=== PATIENT | female | born 1940 | race Caucasian/White ===

== ENCOUNTER 2021-03-15 19:16 | Emergency (ER) | payer MEDICARE, OTHER ==
[~2021-03-15] VITALS: Ht 165.1 cm; Wt 49.4 kg
[2021-03-15] MEDS ORDERED: BASAGLAR K100 UNIT/6 SC (19:27)
[2021-03-15] MEDS ORDERED: INSULIN LI100 UNIT/6 SC (19:28)
[2021-03-15 20:49] LABS: Source, Urine Clean Catch
[2021-03-15 20:53] LABS: BASOPHILS ABSOLUTE AUTO 0.06 K/mm3 (0.00-0.23); BASOPHILS PERCENT AUTO 1 % (0-2); EOSINOPHILS ABSOLUTE AUTO 0.14 K/mm3 (0.00-0.68); EOSINOPHILS PERCENT AUTO 3 % (0-6); Hematocrit 39.3 % (33.0-51.0); Hemoglobin 13.1 g/dL (11.5-16.0); IMMATURE GRAN ABSOLUTE AUTO 0.01 K/mm3 (0.00-0.10); IMMATURE GRAN PERCENT AUTO 0 % (0-1); LYMPHOCYTES ABSOLUTE AUTO 1.35 K/mm3 (0.84-5.20); LYMPHOCYTES PERCENT AUTO 26 % (21-46); MONOCYTES ABSOLUTE AUTO 0.34 K/mm3 (0.16-1.47); MONOCYTES PERCENT AUTO 7 % (4-13); Mean Corpuscular HGB 30.5 pg (26.0-34.0); Mean Corpuscular HGB Conc 33.3 g/dL (31.5-36.5); Mean Corpuscular Volume 92 fL (80-100); NEUTROPHILS ABSOLUTE AUTO 3.33 K/mm3 (1.96-9.15); NEUTROPHILS PERCENT AUTO 64 % (41-73); Platelet Count 188 K/mm3 (150-400); RDW Coefficient Variation 12.4 % (11.7-14.2); RDW Standard Deviation 41.5 fL (35.1-46.3); Red Blood Cell Count 4.29 M/mm3 (3.80-5.20); White Blood Cell Count 5.23 K/mm3 (4.00-11.30)
[2021-03-15 20:53] LABS: Appearance, Urine Clear (Clear); Bilirubin, Urine Neg (Neg); Blood, Urine 1+ (Neg); Color, Urine Yellow (P-Yellow); Glucose Qualitative, Urine 4+ (Neg); Ketones, Urine Neg (Neg); Leukocyte Esterase, Urine Neg (Neg); Nitrite, Urine Neg (Neg); Protein, Urine 2+ (Neg); Urobilinogen, Urine NORM (Normal); pH, Urine 6.5 (5.0-8.0)
[2021-03-15 21:13] LABS: Bacteria Rare /hpf; Red Blood Cells, Urine 0-2 /hpf (0-2); Squamous Epithelial Cells Few /hpf (Few); White Blood Cells, Urine Not Seen /hpf (0-5)
[2021-03-15 21:33] LABS: Alanine Aminotransfer (ALT/SGP 28 U/L (12-78); Albumin/Globulin Ratio 0.7 (0.8-1.8); Alk Phos 154 U/L (50-136); Anion Gap 5 mmol/L (6-16); Aspartate Aminotrans (AST/SGOT 18 U/L (12-37); Bilirubin, Total 0.4 mg/dL (0.1-1.0); Blood Urea Nitrogen 20 mg/dL (8-24); CO2, Blood 30 mmol/L (21-32); Calcium, Blood 9.2 mg/dL (8.5-10.1); Chloride, Blood 99 mmol/L (98-108); Creatinine, Blood 0.53 mg/dL (0.40-1.00); Globulin, Blood 4.1 g/dL (2.2-4.0); Glomerular Filtration Rate >60 (60-); Glucose, Blood 435 mg/dL (70-99); Magnesium, Blood 2.3 mg/dL (1.6-2.4); Sodium, Blood 134 mmol/L (136-145); Total Protein, Blood 7.1 g/dL (6.4-8.2); Troponin I <0.015 ng/mL (0.000-0.040)
== END 2021-03-16 01:28 | disposition home or self-care (01) ==
LOC: ER 19:16
PROVIDERS: Physician Assistant
DX: E11.65 Type 2 diabetes mellitus with hyperglycemia (principal); E86.0 Dehydration; Z88.0 Allergy status to penicillin; Z91.012 Allergy to eggs; Z79.4 Long term (current) use of insulin
CPT/HCPCS: 36415; 80053; 81001; 82947; 83735; 84484; 85025; 93005; 93010; 99285-25; J1815; J7030

== ENCOUNTER → 2021-03-22 | Outpatient (CLI) | payer MEDICARE, OTHER ==
[~2021-03-22] MED LIST: BASAGLAR K100 UNIT/6 SC; INSULIN LI100 UNIT/6 SC
== END ==
LOC: LAB SHORT 14:25 → LAB 14:25
DX: R42 Dizziness and giddiness (principal); R81 Glycosuria
CPT/HCPCS: 87086

== ENCOUNTER 2021-05-11 14:58 | Inpatient (IN) | payer MEDICARE, OTHER ==
[~2021-05-11] VITALS: Ht 162.6 cm; Wt 55.3 kg
[2021-05-11 16:43] LABS: BASOPHILS ABSOLUTE AUTO 0.06 K/mm3 (0.00-0.23); BASOPHILS PERCENT AUTO 1 % (0-2); EOSINOPHILS ABSOLUTE AUTO 0.14 K/mm3 (0.00-0.68); EOSINOPHILS PERCENT AUTO 2 % (0-6); Hematocrit 35.1 % (33.0-51.0); Hemoglobin 11.8 g/dL (11.5-16.0); IMMATURE GRAN ABSOLUTE AUTO 0.01 K/mm3 (0.00-0.10); IMMATURE GRAN PERCENT AUTO 0 % (0-1); LYMPHOCYTES ABSOLUTE AUTO 1.21 K/mm3 (0.84-5.20); LYMPHOCYTES PERCENT AUTO 18 % (21-46); MONOCYTES ABSOLUTE AUTO 0.39 K/mm3 (0.16-1.47); MONOCYTES PERCENT AUTO 6 % (4-13); Mean Corpuscular HGB Conc 33.6 g/dL (31.5-36.5); Mean Corpuscular Volume 92 fL (80-100); Mean Platelet Volume 9.4 fL (9.1-12.4); NEUTROPHILS ABSOLUTE AUTO 4.76 K/mm3 (1.96-9.15); NEUTROPHILS PERCENT AUTO 73 % (41-73); Platelet Count 174 K/mm3 (150-400); RDW Standard Deviation 41.3 fL (35.1-46.3); Red Blood Cell Count 3.81 M/mm3 (3.80-5.20); White Blood Cell Count 6.57 K/mm3 (4.00-11.30)
[2021-05-11 16:52] LABS: International Normalized Ratio 1.01; Prothrombin Time Results 10.6 Sec (9.7-11.5)
[2021-05-11 16:56] LABS: Alanine Aminotransfer (ALT/SGP 24 U/L (12-78); Albumin, Blood 3.1 g/dL (3.4-5.0); Albumin/Globulin Ratio 0.9 (0.8-1.8); Alk Phos 123 U/L (50-136); Anion Gap 4 mmol/L (6-16); Aspartate Aminotrans (AST/SGOT 19 U/L (12-37); Bilirubin, Total 0.3 mg/dL (0.1-1.0); Blood Urea Nitrogen 15 mg/dL (8-24); Bun/Creatinine Ratio 31.2 (12.0-20.0); CO2, Blood 27 mmol/L (21-32); Calcium, Blood 8.4 mg/dL (8.5-10.1); Chloride, Blood 102 mmol/L (98-108); Creatinine, Blood 0.48 mg/dL (0.40-1.00); Globulin, Blood 3.4 g/dL (2.2-4.0); Glomerular Filtration Rate >60 (60-); Glucose, Blood 168 mg/dL (70-99); Sodium, Blood 133 mmol/L (136-145); Total Protein, Blood 6.5 g/dL (6.4-8.2)
[2021-05-11 17:58] LABS: Influenza A, PCR NEGATIVE (NEGATIVE); Influenza B, PCR NEGATIVE (NEGATIVE); Resp Syncytial Virus, PCR NEGATIVE (NEGATIVE); SARS-Cov-2 (COVID-19) PCR, MMC NEGATIVE (NEGATIVE)
[2021-05-12 05:19] LABS: International Normalized Ratio 1.02; Prothrombin Time Results 10.7 Sec (9.7-11.5)
[2021-05-12 05:23] LABS: BASOPHILS ABSOLUTE AUTO 0.03 K/mm3 (0.00-0.23); BASOPHILS PERCENT AUTO 0 % (0-2); EOSINOPHILS ABSOLUTE AUTO 0.01 K/mm3 (0.00-0.68); EOSINOPHILS PERCENT AUTO 0 % (0-6); Hematocrit 31.6 % (33.0-51.0); Hemoglobin 10.8 g/dL (11.5-16.0); IMMATURE GRAN ABSOLUTE AUTO 0.02 K/mm3 (0.00-0.10); IMMATURE GRAN PERCENT AUTO 0 % (0-1); LYMPHOCYTES ABSOLUTE AUTO 0.95 K/mm3 (0.84-5.20); LYMPHOCYTES PERCENT AUTO 14 % (21-46); MONOCYTES ABSOLUTE AUTO 0.63 K/mm3 (0.16-1.47); MONOCYTES PERCENT AUTO 9 % (4-13); Mean Corpuscular HGB 31.2 pg (26.0-34.0); Mean Corpuscular HGB Conc 34.2 g/dL (31.5-36.5); Mean Corpuscular Volume 91 fL (80-100); Mean Platelet Volume 10.3 fL (9.1-12.4); NEUTROPHILS ABSOLUTE AUTO 5.41 K/mm3 (1.96-9.15); NEUTROPHILS PERCENT AUTO 77 % (41-73); Platelet Count 150 K/mm3 (150-400); RDW Coefficient Variation 12.1 % (11.7-14.2); RDW Standard Deviation 40.5 fL (35.1-46.3); Red Blood Cell Count 3.46 M/mm3 (3.80-5.20); White Blood Cell Count 7.05 K/mm3 (4.00-11.30)
[2021-05-12 05:44] LABS: Anion Gap 9 mmol/L (6-16); Blood Urea Nitrogen 22 mg/dL (8-24); Bun/Creatinine Ratio 34.9 (12.0-20.0); CO2, Blood 24 mmol/L (21-32); Calcium, Blood 8.1 mg/dL (8.5-10.1); Chloride, Blood 97 mmol/L (98-108); Creatinine, Blood 0.63 mg/dL (0.40-1.00); Glomerular Filtration Rate >60 (60-); Glucose, Blood 334 mg/dL (70-99); Potassium, Blood 4.1 mmol/L (3.5-5.5); Sodium, Blood 130 mmol/L (136-145)
--- NOTE | 2021-05-12 06:20 | NUR ---
ALERT AND ORIENTED X'S 4. MEDICATED WITH VICODIN AND FENTANYL DUE TO RIGHT HIP PAIN, REPOSITIONED FOR COMFORT, EFFECTIVE RELIEF. 0600 BS 325, RECEIVED 4 UNITS PER SLIDING SCALE. RESTING PEACEFULLY AT THIS TIME. PUREWICK CATHETER IN PLACE, WORKING EFFECTIVELY. SAFETY MAINTAINED, CALL PAREDES IN REACH.
--- NOTE | 2021-05-12 06:29 | NUR ---
NPO AFTER MIDNIGHT.
--- NOTE | 2021-05-12 12:41 | NUR ---
05/12/21 1241 Mell Mcmullen PATIENT ARRIVED TO OR WITH WICK CATHETER IN PLACE.
--- NOTE | 2021-05-12 14:31 | NUR ---
PT RETURNED FROM O.R., A&OX4, VSS, REP MINIMAL PAIN, SITTING UP AND DRINKING WATER.
--- NOTE | 2021-05-12 15:44 | NUR ---
TELEPHONE CALL WITH HOSPITALIST, RECEIVED NEW ORDERS: TORADOL 15 MG Q6H PRN, KEEP PT ON HOSPITAL LOW SLIDING SCALE (PT WAS REQUESTING TO USE THE SCALE SHE USES AT HOME), AND DC TELE.
--- NOTE | 2021-05-12 18:09 | NUR ---
SHIFT SUMMARY POD0 FOR R HIP NAILING. 2 AQUACELS CDI, PT A/0 X4. VSS ON ROOM AIR. CBG'S AC/HS COVERED PER EMAR. TOUCHDOWN WEIGHT BEARING, PT STOOD AND PIVOTED WITH FWW/GB/SBA TO BSC. PAIN CONTROLED WITH TYLENOL AND TORADOL. TOLORATING PO. VOIDED 100ML
--- NOTE | 2021-05-12 18:59 | NUR ---
SHIFT SUMMARY PT A&OX4, VSS/RA, CBGS COV PER EMAR. VOIDING. HOLLIE PO. PAIN MANAGED WITH TYLENOL AND TORADOL. S/P R HIP NAILING, 2 AQUACELS CDI. AMB W/FWW/GB/SBA TO BSC/BED. REPORT PROVIDED TO MEGAN SORIANO.
--- NOTE | 2021-05-12 21:27 | NUR ---
BS 354, NOTIFIED MD, RECEIVED ORDER FOR ADDITIONAL 5 UNITS OF REGULAR INSULIN.
[2021-05-13 04:14] LABS: Hemoglobin 9.1 g/dL (11.5-16.0); Mean Corpuscular HGB 31.4 pg (26.0-34.0); Mean Corpuscular Volume 90 fL (80-100); Mean Platelet Volume 9.7 fL (9.1-12.4); Platelet Count 153 K/mm3 (150-400); RDW Standard Deviation 39.3 fL (35.1-46.3); White Blood Cell Count 7.98 K/mm3 (4.00-11.30)
[2021-05-13 04:44] LABS: Alanine Aminotransfer (ALT/SGP 20 U/L (12-78); Albumin, Blood 2.6 g/dL (3.4-5.0); Albumin/Globulin Ratio 0.9 (0.8-1.8); Alk Phos 78 U/L (50-136); Anion Gap 7 mmol/L (6-16); Aspartate Aminotrans (AST/SGOT 14 U/L (12-37); Bilirubin, Total 0.5 mg/dL (0.1-1.0); Blood Urea Nitrogen 35 mg/dL (8-24); Bun/Creatinine Ratio 41.7 (12.0-20.0); CO2, Blood 25 mmol/L (21-32); Calcium, Blood 7.8 mg/dL (8.5-10.1); Chloride, Blood 93 mmol/L (98-108); Creatinine, Blood 0.84 mg/dL (0.40-1.00); Ferritin, Serum 74 ng/mL (8-252); Glomerular Filtration Rate >60 (60-); Glucose, Blood 303 mg/dL (70-99); Iron Serum 44 ug/dL (50-170); Percent Saturation 18.5 % (15.0-50.0); Potassium, Blood 4.6 mmol/L (3.5-5.5); Sodium, Blood 125 mmol/L (136-145); Total Iron Binding Capacity 238 ug/dL (250-450); Total Protein, Blood 5.6 g/dL (6.4-8.2)
--- NOTE | 2021-05-13 05:21 | NUR ---
SLEPT WELL THROUGH NIGHT. FLUIDS ENCOURAGED AT BEDSIDE, TOLERATING WELL. DENIES PAIN OR DISCOMFORT. 2 ASSIST TO BSC, PATIENT ABLE TO STAND AND PIVOT WITH WALKER, VOIDING WITHOUT DIFFICULTIES. SAFETY MAINTAINED, CALL PAREDES IN REACH.
--- NOTE | 2021-05-13 15:34 | NUR ---
SHIFT SUMMARY: POD 1 RIGHT HIP REPAIR PATIENT IS ALERT AND ORIENTED X4. VS ARE WNL AND IS ON RA. PAIN IS MANAGED WITH TORADOL AND 1 NORCO. RIGHT HIP HAS 2 AQUACEL THAT ARE C/D/I. SHE IS ABLE TO MOVE FINGERS AND TOES. PATIENT NEEDS A LOT OF ENCOURAGEMENT WITH MOVING. SHE ALSO NEEDS TO BE REMINDED ON THE HIP PRECAUTIONS EVERY TIME SHE NEEDS TO USE THE BSC. SHE TOLERATES PO INTAKE AND IS VOIDING. PATIENT IS VERY ANXIOUS WITH MOVEMENT/INSTRUCTIONS. SHE IS A SBA WITH FWW AND GAIT BELT. CALL LIGHT WITHIN REACH. THE PLAN IS TO EITHER GO TO SNF OR HOME WITH HOME HEALTH DEPENDING ON PROGRESS.
--- NOTE | 2021-05-13 16:39 | NUR ---
CALLED DR. TORRES ABOUT PATIENT REFUSING HER INSULIN WITH HER BLOOD SUGAR BEING 322. PATIENT REPORTS "ITS GOING DOWN TOO FAST" IS WHY SHE DOESN'T WANT THE INSULIN. SHE KEEPS REPEATING "WITH DR. FERREIRA HE DOES MY INSULIN DIFFERENT AND ITS MORE MANAGED" AND "I HAD DKA BEFORE AND CAN'T HAVE MY INSULIN GO DOWN TOO FAST". CALLED DR. FERREIRA AND ASKED IF HE COULD COME IN AND TALK WITH THE PATIENT BUT HE WAS ALREAD OUT OF THE HOSPITAL. THOUGH DR. FERREIRA STATED HE WOULD REVIEW THE PATIENTS CHART.
--- NOTE | 2021-05-13 17:52 | NUR ---
PATIENT IS REFUSING PO METFORMIN AND GLIPIZIDE. PATIENT REPORTS "I WANT TO HAVE MY FAST ACTING INSULIN AND HAVE MY LANTUS AT 2100 TWICE A DAY" AND ALSO STATES "THIS IS TOO EARLY TO TAKE MY LANTUS". PATIENT WILL BE BLOOD GLUCOSE TESTED AGAIN AT 2100 AND THEN WILL POSSIBLY HAVE HER LANTUS AT THAT TIME IF APPROPRIATE. CALL LIGHT WITHIN REACH. PATIENT IS EATING HER DINNER UP IN THE CHAIR.
--- NOTE | 2021-05-13 21:30 | NUR ---
PATIENTS GLUCOSE 357, REFUSING SLIDING SCALE COVERAGE, SHE STATED SHE WILL ONLY TAKE 2 UNITS OF REGULAR INSULIN AND HER 9 UNITS OF GLARGINE. PATIENT REQUESTING TO HAVE HER SLIDING UPDATED TO HER SLIDING SCALE AT HOME. NOTIFIED DR. LU, OK TO GIVE 2 UNITS REGULAR AND 9 UNITS OF GLARGINE AND DO NOT CHANGE CURRENT SLIDING SCALE.
--- NOTE | 2021-05-14 05:27 | NUR ---
ALERT X'S 4. MEDICATED FOR RIGHT HIP PAIN, EFFECTIVE RELIEF. S;AEPT WELL THROUGH NIGHT. 1 ASSIST TO BSC. AUQUACEL DRESSING CLEAN DRY AND INTACT TO RIGHT HIP, SAFETY MAINTAINED, CALL PAREDES IN REACH.
--- NOTE | 2021-05-14 09:42 | NUR ---
PATIENT DECLINING METFORMIN AND GLIPIZIDE THIS A.M. STATES "IM CLAMMY AND MY BLOOD SUGAR IS LOW", EXPLAINED TO PT. THAT BLOOD SUGAR IS 285MG/DL AND NOTED THAT PT. DID NOT FEEL CLAMMY. PRIOR TO SLIDING SCALE INSULIN PATIENT INSISTED THAT BLOOD SUGAR BE TAKEN AGAIN, RESULT 328MG/DL. EXPLAINED THE PATHOPHYS OF DIABETES AND BLOOD SUGAR, STATES "WELL IM DIFFERENT AND I DROP FAST". STATES SHE IS FRUSTRATED WITH ALWAYS GETTING NEW ORDERS AND "METFORMIN MAKES ME VERY ILL". SHE DID TAKE HER SSI OF 4U AND ATE HER BREAKFAST. GLARGINE 9 UNITS GIVEN AFTER BREAKFAST. STATES SHE WANTS TO DISCUSS HER USUAL MEDICATION REGIME WITH THE DOCTOR.
[2021-05-14 12:13] LABS: Hematocrit 28.4 % (33.0-51.0); Hemoglobin 9.9 g/dL (11.5-16.0); Mean Corpuscular HGB 31.2 pg (26.0-34.0); Mean Corpuscular HGB Conc 34.9 g/dL (31.5-36.5); Mean Corpuscular Volume 90 fL (80-100); Mean Platelet Volume 9.7 fL (9.1-12.4); Platelet Count 169 K/mm3 (150-400); RDW Coefficient Variation 11.6 % (11.7-14.2); RDW Standard Deviation 37.5 fL (35.1-46.3); Red Blood Cell Count 3.17 M/mm3 (3.80-5.20); White Blood Cell Count 7.12 K/mm3 (4.00-11.30)
[2021-05-14 13:09] LABS: Anion Gap 10 mmol/L (6-16); Blood Urea Nitrogen 26 mg/dL (8-24); Bun/Creatinine Ratio 37.8 (12.0-20.0); CO2, Blood 23 mmol/L (21-32); Calcium, Blood 8.2 mg/dL (8.5-10.1); Chloride, Blood 85 mmol/L (98-108); Creatinine, Blood 0.69 mg/dL (0.40-1.00); Glomerular Filtration Rate >60 (60-); Glucose, Blood 308 mg/dL (70-99); Potassium, Blood 4.6 mmol/L (3.5-5.5); Sodium, Blood 118 mmol/L (136-145)
--- NOTE | 2021-05-14 13:11 | NUR ---
CRITICAL VALUE CALLED TO DR. TORRES, MESSAGE LEFT: SODIUM LEVEL 118.
--- NOTE | 2021-05-14 15:40 | NUR ---
NEW ORDERS RECIEVED EARLIER FOR NORMAL SALINE IV PER DR. TORRES. ZOFRAN GIVEN EARLIER AND PT. VERBALIZE RELIEF OF NAUSEA AT THIS TIME. IVF INFUSING.
--- NOTE | 2021-05-14 17:01 | NUR ---
NANCY KEITHG. CHANGE TO R HIP PER DR. FORD INSTRUCTION. TINO INTACT, INCISIONS WELL APPROXIMATED, SMALL AMOUNT OLD DRAINAGE.
[2021-05-14 20:21] LABS: Anion Gap 9 mmol/L (6-16); Blood Urea Nitrogen 20 mg/dL (8-24); Bun/Creatinine Ratio 33.6 (12.0-20.0); CO2, Blood 26 mmol/L (21-32); Calcium, Blood 7.8 mg/dL (8.5-10.1); Chloride, Blood 87 mmol/L (98-108); Glomerular Filtration Rate >60 (60-); Glucose, Blood 225 mg/dL (70-99); Potassium, Blood 4.1 mmol/L (3.5-5.5); Sodium, Blood 122 mmol/L (136-145)
--- NOTE | 2021-05-15 03:45 | NUR ---
COMPLAINING OF ABDOMINAL PAIN, BLADDER SCANNED, RECEIVED GREATER THAN 900ML. STRAIGHT CATHED RECEIVED 1610MLS. RECEIVED ORDER TO INSERT LEW CATHETER, TOLERATED WELL.
[2021-05-15 04:03] LABS: Source, Urine Straight Cath
[2021-05-15 04:09] LABS: Bilirubin, Urine Neg (Neg); Blood, Urine 1+ (Neg); Glucose Qualitative, Urine 4+ (Neg); Ketones, Urine 1+ (Neg); Leukocyte Esterase, Urine Neg (Neg); Nitrite, Urine Neg (Neg); Protein, Urine Neg (Neg); Urobilinogen, Urine NORM (Normal); pH, Urine 6.5 (5.0-8.0)
[2021-05-15 04:13] LABS: Appearance, Urine Clear (Clear); Color, Urine Yellow (P-Yellow)
[2021-05-15 04:31] LABS: Hematocrit 24.3 % (33.0-51.0); Hemoglobin 8.7 g/dL (11.5-16.0); Mean Corpuscular HGB 31.3 pg (26.0-34.0); Mean Corpuscular HGB Conc 35.8 g/dL (31.5-36.5); Mean Corpuscular Volume 87 fL (80-100); Mean Platelet Volume 9.9 fL (9.1-12.4); Platelet Count 144 K/mm3 (150-400); RDW Coefficient Variation 11.5 % (11.7-14.2); RDW Standard Deviation 37.2 fL (35.1-46.3); Red Blood Cell Count 2.78 M/mm3 (3.80-5.20); White Blood Cell Count 5.46 K/mm3 (4.00-11.30)
[2021-05-15 04:42] LABS: Bacteria Rare /hpf; Red Blood Cells, Urine 0-2 /hpf (0-2); Squamous Epithelial Cells Rare /hpf (Few); White Blood Cells, Urine Not Seen /hpf (0-5)
[2021-05-15 05:11] LABS: Alanine Aminotransfer (ALT/SGP 20 U/L (12-78); Albumin, Blood 2.6 g/dL (3.4-5.0); Albumin/Globulin Ratio 0.8 (0.8-1.8); Alk Phos 89 U/L (50-136); Anion Gap 8 mmol/L (6-16); Aspartate Aminotrans (AST/SGOT 19 U/L (12-37); Bilirubin, Total 0.7 mg/dL (0.1-1.0); Blood Urea Nitrogen 16 mg/dL (8-24); Bun/Creatinine Ratio 29.6 (12.0-20.0); CO2, Blood 22 mmol/L (21-32); Calcium, Blood 7.8 mg/dL (8.5-10.1); Chloride, Blood 89 mmol/L (98-108); Creatinine, Blood 0.54 mg/dL (0.40-1.00); Globulin, Blood 3.3 g/dL (2.2-4.0); Glomerular Filtration Rate >60 (60-); Glucose, Blood 287 mg/dL (70-99); Sodium, Blood 119 mmol/L (136-145); Total Protein, Blood 5.9 g/dL (6.4-8.2)
--- NOTE | 2021-05-15 10:56 | NUR ---
LEW EMPTIED PRIOR TO LASIX. AFTER LASIX PT. DIURESED AND HAD 700CC LIGHT PALE YELLOW URINE, EMPTIED LEW AGAIN. TOTAL 1500ML OUT SO FAR THIS SHIFT.
[2021-05-15 11:28] LABS: Anion Gap 9 mmol/L (6-16); Blood Urea Nitrogen 14 mg/dL (8-24); Bun/Creatinine Ratio 27.3 (12.0-20.0); CO2, Blood 24 mmol/L (21-32); Calcium, Blood 7.5 mg/dL (8.5-10.1); Chloride, Blood 89 mmol/L (98-108); Creatinine, Blood 0.51 mg/dL (0.40-1.00); Glomerular Filtration Rate >60 (60-); Glucose, Blood 275 mg/dL (70-99); Potassium, Blood 3.8 mmol/L (3.5-5.5); Sodium, Blood 122 mmol/L (136-145)
[2021-05-16 04:56] LABS: Hematocrit 24.3 % (33.0-51.0); Hemoglobin 8.4 g/dL (11.5-16.0); Mean Corpuscular HGB 30.8 pg (26.0-34.0); Mean Corpuscular HGB Conc 34.6 g/dL (31.5-36.5); Mean Corpuscular Volume 89 fL (80-100); Mean Platelet Volume 9.5 fL (9.1-12.4); Platelet Count 169 K/mm3 (150-400); RDW Coefficient Variation 11.8 % (11.7-14.2); RDW Standard Deviation 37.9 fL (35.1-46.3); Red Blood Cell Count 2.73 M/mm3 (3.80-5.20); White Blood Cell Count 5.89 K/mm3 (4.00-11.30)
[2021-05-16 05:22] LABS: Alanine Aminotransfer (ALT/SGP 19 U/L (12-78); Albumin, Blood 2.4 g/dL (3.4-5.0); Albumin/Globulin Ratio 0.9 (0.8-1.8); Alk Phos 76 U/L (50-136); Anion Gap 8 mmol/L (6-16); Aspartate Aminotrans (AST/SGOT 15 U/L (12-37); Bilirubin, Total 0.9 mg/dL (0.1-1.0); Blood Urea Nitrogen 11 mg/dL (8-24); Bun/Creatinine Ratio 18.6 (12.0-20.0); CO2, Blood 26 mmol/L (21-32); Chloride, Blood 96 mmol/L (98-108); Creatinine, Blood 0.59 mg/dL (0.40-1.00); Globulin, Blood 2.8 g/dL (2.2-4.0); Glomerular Filtration Rate >60 (60-); Glucose, Blood 153 mg/dL (70-99); Potassium, Blood 3.6 mmol/L (3.5-5.5); Sodium, Blood 130 mmol/L (136-145); Total Protein, Blood 5.2 g/dL (6.4-8.2)
--- NOTE | 2021-05-16 06:41 | NUR ---
POD 4 S/P R HIP REP. PT VSS T/O NIGHT. PAIN MGD W/TORADOL W/REP RELIEF. PT DENIED N/V. EH ALVAREZ PALE YELLOW URINE. PT REPOSITIONING SELF W/MIN ASSIST IN BED. PLAN TO MOBILIZE W/PT AND AWAIT DC PLANNING
--- NOTE | 2021-05-16 18:00 | NUR ---
PATIENT CURRENTLY SITTING UP IN BED WITH NO SIGNS OR SYMPTOMS ACUTE DISTRESS NOTED. CALL LIGHT AND WATER IN EASY REACH. ABLE TO MAKE NEEDS AND WANTS KNOWN. MEDICATED FOR PAIN PER ORDERS. PATIENT WORKED WITH THERAPY TODAY. TOLERATED WELL. LEW CATH REMAINS, BLADDER TRAINING STARTED. SIDNEY BONILLA.
--- NOTE | 2021-05-16 21:24 | NUR ---
BLOOD SUGAR: PT RELUCTANT TO TAKE 6 6 UNITS ORDERED BY HIGH SS COVERAGE. ORDER STATES TO GIVE 6 UNITS AND CALL MD. PT STATES SHE IS UNWILLING TO TAKE ADDITIONAL UNITS IF MD ORDERES IT FOR ELEVATED CBG. STATES SHE WILL ONLY TAKE THE SCHEDULED 6 UNITS AND WILL AWAIT AM RECHECK.
[2021-05-17 04:04] LABS: Hematocrit 23.5 % (33.0-51.0); Hemoglobin 8.1 g/dL (11.5-16.0); Mean Corpuscular HGB 31.2 pg (26.0-34.0); Mean Corpuscular HGB Conc 34.5 g/dL (31.5-36.5); Mean Corpuscular Volume 90 fL (80-100); Mean Platelet Volume 9.1 fL (9.1-12.4); Platelet Count 168 K/mm3 (150-400); RDW Coefficient Variation 12.1 % (11.7-14.2); RDW Standard Deviation 39.5 fL (35.1-46.3); White Blood Cell Count 5.37 K/mm3 (4.00-11.30)
[2021-05-17 04:22] LABS: Anion Gap 3 mmol/L (6-16); Blood Urea Nitrogen 18 mg/dL (8-24); Bun/Creatinine Ratio 26.4 (12.0-20.0); CO2, Blood 29 mmol/L (21-32); Chloride, Blood 98 mmol/L (98-108); Creatinine, Blood 0.68 mg/dL (0.40-1.00); Glomerular Filtration Rate >60 (60-); Glucose, Blood 216 mg/dL (70-99); Potassium, Blood 4.7 mmol/L (3.5-5.5); Sodium, Blood 130 mmol/L (136-145)
--- NOTE | 2021-05-17 07:17 | NUR ---
POD 5 S/P R HIP REP. PT VSS T/O NIGHT. DRESSING CDI, SMALL BRUISE NOTED ON HIP. PAIN MGD W/TORADOL AND REPOSITIONING PER PT REQ. PT WANTING TO LIMIT NARCOTIC MEDS. BLADDER TRAINING CONT T/O NIGHT. PT REP ONLY FELT SMALL URGE TO VOID, BLADDER DRAINED 800 ML WHEN UNCLAMPED ATER 4HRS. 300 ML DRAINED AFTER SECOND TIME LEW UNCLAMPED. PT HAD 2 SMALL BM'S THIS SHIFT. NO C/O N/V.
--- NOTE | 2021-05-17 18:16 | NUR ---
PATIENT CURRENTLY SITTING UP IN BED EATING HER MEAL. NO SIGNS OR SYMPTOMS ACUTE DISTRESS NOTED. CALL LIGHT AND WATER IN EASY REACH. ABLE TO MAKE NEEDS AND WANTS KNOWN. UP TO CHAIR TODAY. PATIENT REFUSES TO FOLLOW DIRECTIONS FOR HER SLIDING SCALE INSULIN. MEDICATED FOR PAIN PER ORDERS. BLADDER TRAINING CONTINUES. DRESSING TO RIGHT HIP CDI. WILL MONITOR.
--- NOTE | 2021-05-18 05:07 | NUR ---
MEDICATED WITH NORCO X'S 1 FOR PAIN MANAGEMENT, EFFECTIVE RELIEF. SLEPT WELL THROUGH NIGHT. LEW CATHETER IN PLACE, CONTINUING TO BLADDER TRAIN. CURRENTLY RESTING PEACEFULLY IN BED. SAFETY MAINTAINED, CALL PAREDES IN REACH
[2021-05-18 11:48] LABS: Influenza A, PCR NEGATIVE (NEGATIVE); Influenza B, PCR NEGATIVE (NEGATIVE); Resp Syncytial Virus, PCR NEGATIVE (NEGATIVE); SARS-Cov-2 (COVID-19) PCR, MMC NEGATIVE (NEGATIVE)
--- NOTE | 2021-05-18 15:45 | NUR ---
DISCHARGE: CALLED REPORT TO BRAXTON BOUCHER AT [facility] AT THIS TIME. PATIENT IS AWARE OF HER DISCHARGE TO [facility]. PATIENT LEW WAS REMOVED TODAY AFTER DOING TWO DAYS OF BLADDER TRAINING. SHE HAS VOIDED TWICE SINCE LEW DC. NO SIGNS OR SYMPTOMS ACUTE DISTRESS NOTED AT THIS TIME. AWAITING TRANSPORT TO PICK PATIENT UP FOR DC.
== END 2021-05-18 16:30 | DRG 481 ==
LOC: ER 14:58 → SURS 18:15
PROVIDERS: Emergency Medicine; Internal Medicine; Orthopaedic Surgery; ADMIT Family Medicine
PROC: 0QS636Z Reposition Right Upper Femur with Intramedullary Internal Fixation Device, Percutaneous Approach (ICD-10-PCS; principal; 2021-05-12 12:00)
DX: S72.141A Displaced intertrochanteric fracture of right femur, initial encounter for closed fracture (principal); E87.1 Hypo-osmolality and hyponatremia; E11.9 Type 2 diabetes mellitus without complications; I10 Essential (primary) hypertension; F03.90 Unspecified dementia, unspecified severity, without behavioral disturbance, psychotic disturbance, mood disturbance, and anxiety; R33.9 Retention of urine, unspecified; D63.8 Anemia in other chronic diseases classified elsewhere; M81.0 Age-related osteoporosis without current pathological fracture; Z90.710 Acquired absence of both cervix and uterus; Z98.890 Other specified postprocedural states; Z88.0 Allergy status to penicillin; Z91.012 Allergy to eggs; Z79.4 Long term (current) use of insulin; W01.0XXA Fall on same level from slipping, tripping and stumbling without subsequent striking against object, initial encounter; Y93.01 Activity, walking, marching and hiking
CPT/HCPCS: 0241U; 36415; 36416; 72170; 73552; 80048; 80053; 81001; 82728; 82947; 83540; 83550; 83735; 84443; 85025; 85027; 85610; 85730; 97110; 97116; 97162; 97166; 97530; 97530-CQ; 97535; 99285-25; A9270; C1713; C1769; J0360; J1100; J1815; J1885; J1940; J2250; J2370; J2405; J2704; J3010; J7030

== ENCOUNTER 2021-05-27 09:54 | Emergency (ER) | payer MEDICARE, OTHER ==
[~2021-05-27] VITALS: Ht 162.6 cm; Wt 57.6 kg
[2021-05-27 10:14] LABS: BASOPHILS ABSOLUTE AUTO 0.06 K/mm3 (0.00-0.23); BASOPHILS PERCENT AUTO 1 % (0-2); EOSINOPHILS PERCENT AUTO 3 % (0-6); Hematocrit 29.6 % (33.0-51.0); Hemoglobin 9.9 g/dL (11.5-16.0); IMMATURE GRAN ABSOLUTE AUTO 0.04 K/mm3 (0.00-0.10); IMMATURE GRAN PERCENT AUTO 1 % (0-1); LYMPHOCYTES ABSOLUTE AUTO 1.49 K/mm3 (0.84-5.20); LYMPHOCYTES PERCENT AUTO 24 % (21-46); MONOCYTES ABSOLUTE AUTO 0.55 K/mm3 (0.16-1.47); MONOCYTES PERCENT AUTO 9 % (4-13); Mean Corpuscular HGB 30.9 pg (26.0-34.0); Mean Corpuscular HGB Conc 33.4 g/dL (31.5-36.5); Mean Corpuscular Volume 93 fL (80-100); Mean Platelet Volume 8.7 fL (9.1-12.4); NEUTROPHILS ABSOLUTE AUTO 3.84 K/mm3 (1.96-9.15); NEUTROPHILS PERCENT AUTO 62 % (41-73); Platelet Count 334 K/mm3 (150-400); RDW Coefficient Variation 12.4 % (11.7-14.2); RDW Standard Deviation 42.3 fL (35.1-46.3); White Blood Cell Count 6.18 K/mm3 (4.00-11.30)
[2021-05-27 10:31] LABS: Alanine Aminotransfer (ALT/SGP 33 U/L (12-78); Albumin, Blood 2.5 g/dL (3.4-5.0); Albumin/Globulin Ratio 0.6 (0.8-1.8); Alk Phos 146 U/L (50-136); Anion Gap 7 mmol/L (6-16); Aspartate Aminotrans (AST/SGOT 19 U/L (12-37); Bilirubin, Total 0.4 mg/dL (0.1-1.0); Blood Urea Nitrogen 18 mg/dL (8-24); Bun/Creatinine Ratio 30.1 (12.0-20.0); CO2, Blood 26 mmol/L (21-32); Calcium, Blood 8.8 mg/dL (8.5-10.1); Chloride, Blood 99 mmol/L (98-108); Globulin, Blood 4.1 g/dL (2.2-4.0); Glomerular Filtration Rate >60 (60-); Glucose, Blood 216 mg/dL (70-99); Potassium, Blood 3.7 mmol/L (3.5-5.5); Sodium, Blood 132 mmol/L (136-145); Total Protein, Blood 6.6 g/dL (6.4-8.2)
[2021-05-27 13:00] LABS: Source, Urine Voided
[2021-05-27 13:07] LABS: Bilirubin, Urine Neg (Neg); Blood, Urine 2+ (Neg); Glucose Qualitative, Urine 3+ (Neg); Ketones, Urine Neg (Neg); Leukocyte Esterase, Urine 1+ (Neg); Nitrite, Urine Neg (Neg); Protein, Urine 1+ (Neg); Urobilinogen, Urine NORM (Normal)
[2021-05-27 13:45] LABS: Appearance, Urine Hazy (Clear); Color, Urine Pale Yellow (P-Yellow)
[2021-05-27 13:46] LABS: Squamous Epithelial Cells Rare /hpf (Few)
[2021-05-27 13:47] LABS: Bacteria Few /hpf
== END 2021-05-27 16:15 | disposition home or self-care (01) ==
LOC: ER 09:54
PROVIDERS: Emergency Medicine
DX: R55 Syncope and collapse (principal); Z88.0 Allergy status to penicillin; Z91.012 Allergy to eggs; E11.9 Type 2 diabetes mellitus without complications; Z79.4 Long term (current) use of insulin
CPT/HCPCS: 71045; 80053; 81001; 84484; 85025; 87086; 93005; 93010; 99285-25; J7030

== ENCOUNTER → 2022-05-09 | Outpatient (CLI) | payer MEDICARE, OTHER | LOC: LAB 15:12 → LAB SHORT 15:12 | DX: R09.89 Other specified symptoms and signs involving the circulatory and respiratory systems (principal) | CPT/HCPCS: 81050 ==

== ENCOUNTER 2022-08-23 13:04 | Emergency (ER) | payer OTHER, MEDICARE ==
[~2022-08-23] VITALS: Ht 162.6 cm; Wt 66.2 kg
[2022-08-23 13:14] VITALS: BP 188/92
== END 2022-08-23 16:05 | disposition home or self-care (01) ==
LOC: ER 13:04
DX: S30.0XXA Contusion of lower back and pelvis, initial encounter (principal); W01.0XXA Fall on same level from slipping, tripping and stumbling without subsequent striking against object, initial encounter; E11.9 Type 2 diabetes mellitus without complications; Z88.0 Allergy status to penicillin; Z88.8 Allergy status to other drugs, medicaments and biological substances; Z91.012 Allergy to eggs; Z79.4 Long term (current) use of insulin
CPT/HCPCS: 73502; A9270

== ENCOUNTER → 2023-03-08 | Outpatient (CLI) | payer MEDICARE, OTHER ==
[~2023-03-08] MED LIST changes: +AMLO5 PO
== END ==
LOC: LAB 15:00 → LAB SHORT 15:00
DX: L21.8 Other seborrheic dermatitis (principal)
CPT/HCPCS: 87070; 87205

== ENCOUNTER 2023-03-15 15:21 | Emergency (ER) | payer MEDICARE, OTHER ==
[~2023-03-15] VITALS: Ht 162.6 cm; Wt 63.5 kg
[~2023-03-15 15:21] MED LIST changes: -AMLO5 PO
[2023-03-15 21:20] VITALS: BP 215/102
[2023-03-15] MEDS ORDERED: AMLO5 PO (21:24)
== END 2023-03-15 21:30 | disposition home or self-care (01) ==
LOC: ER 15:21
DX: S09.90XA Unspecified injury of head, initial encounter (principal); I10 Essential (primary) hypertension; E11.9 Type 2 diabetes mellitus without complications; M81.0 Age-related osteoporosis without current pathological fracture; Z99.89 Dependence on other enabling machines and devices; Z79.4 Long term (current) use of insulin; Z79.899 Other long term (current) drug therapy; Z88.0 Allergy status to penicillin; Z88.8 Allergy status to other drugs, medicaments and biological substances; Z91.012 Allergy to eggs; W10.1XXA Fall (on)(from) sidewalk curb, initial encounter; Y93.01 Activity, walking, marching and hiking
CPT/HCPCS: 70450; 72125; 82947; 93005; 93010; 99284-25; A9270

== ENCOUNTER → 2023-03-15 | Outpatient (CLI) | payer MEDICARE, OTHER ==
[2023-03-21 07:42] LABS: VARICELLA-ZOSTER VIRUS BY PCR Not Detected; VARICELLA-ZOSTER VIRUS SOURCE SKIN
== END ==
LOC: LAB SHORT 16:25 → LAB 16:25
PROVIDERS: Dermatology Dermatopathology
DX: D48.5 Neoplasm of uncertain behavior of skin (principal); R21 Rash and other nonspecific skin eruption; L21.8 Other seborrheic dermatitis; L81.4 Other melanin hyperpigmentation; L82.1 Other seborrheic keratosis; D18.01 Hemangioma of skin and subcutaneous tissue
CPT/HCPCS: 87798

== ENCOUNTER 2024-01-13 15:44 | Inpatient (IN) | payer MEDICARE, OTHER ==
[2024-01-13] VITALS (13 sets, daily range): BP systolic 190–214; BP diastolic 78–109
[~2024-01-13] VITALS: Ht 160 cm; Wt 61.4 kg
[~2024-01-13 15:44] MED LIST changes: +AMLO5 PO
[2024-01-13] MEDS ORDERED: Nitroglycerin/D5W 250 ML IV SCH ×2 (16:25→17:50)
[2024-01-13] MEDS ORDERED: Nitroglycerin 0.4 MG SUBL SL PRN (16:25)
[2024-01-13 16:34] LABS: Albumin/Globulin Ratio 0.8 (0.8-1.8); Bilirubin, Total 0.4 mg/dL (0.1-1.0); Bun/Creatinine Ratio 36.1 (12.0-20.0); Calcium, Blood 8.8 mg/dL (8.5-10.1); Creatinine, Blood 1.55 mg/dL (0.40-1.00); Globulin, Blood 3.7 g/dL (2.2-4.0); Potassium, Blood 3.7 mmol/L (3.5-5.5); Total Protein, Blood 6.7 g/dL (6.4-8.2)
[2024-01-13 16:43] LABS: BASOPHILS ABSOLUTE AUTO 0.04 K/mm3 (0.00-0.23); BASOPHILS PERCENT AUTO 1 % (0-2); EOSINOPHILS ABSOLUTE AUTO 0.02 K/mm3 (0.00-0.68); EOSINOPHILS PERCENT AUTO 0 % (0-6); Hematocrit 26.5 % (33.0-51.0); Hemoglobin 9.1 g/dL (11.5-16.0); IMMATURE GRAN ABSOLUTE AUTO 0.03 K/mm3 (0.00-0.10); IMMATURE GRAN PERCENT AUTO 1 % (0-1); LYMPHOCYTES ABSOLUTE AUTO 1.04 K/mm3 (0.84-5.20); LYMPHOCYTES PERCENT AUTO 17 % (21-46); MONOCYTES PERCENT AUTO 5 % (4-13); Mean Corpuscular HGB 30.1 pg (26.0-34.0); Mean Corpuscular HGB Conc 34.3 g/dL (31.5-36.5); Mean Corpuscular Volume 88 fL (80-100); NEUTROPHILS ABSOLUTE AUTO 4.55 K/mm3 (1.96-9.15); NEUTROPHILS PERCENT AUTO 76 % (41-73); Platelet Count 203 K/mm3 (150-400); RDW Standard Deviation 41.2 fL (35.1-46.3); Red Blood Cell Count 3.02 M/mm3 (3.80-5.20); White Blood Cell Count 5.98 K/mm3 (4.00-11.30)
[2024-01-13] MEDS ORDERED: Labetalol HCL 5 MG/ML 4ML Injection (Single Dose) IV ONE (16:55)
[2024-01-13] MEDS ORDERED: HydrALAZINE HCl 25 MG Tab PO PRN (19:00)
[2024-01-13] MEDS ORDERED: Lisinopril 10 MG Tab PO SCH (19:00)
[2024-01-13] MEDS ORDERED: Labetalol HCL 5 MG/ML 4ML Injection (Single Dose) IV PRN (19:05)
[2024-01-13] MEDS ORDERED: Ondansetron HCl 2 MG / ML 2ML Vial IV PRN (19:15)
[2024-01-13] MEDS ORDERED: Acetaminophen 325 MG TABLET PO PRN (19:15)
[2024-01-13] MEDS ORDERED: Furosemide 10 MG/ML 4ML Vial IV SCH (20:00)
[2024-01-13 20:11] LABS: Percent Saturation 11.8 % (15.0-50.0)
[2024-01-13] MEDS ORDERED: Insulin Glargine-Yfgn 100 Unit/mL 3 ML SYR SC SCH (21:00)
[2024-01-13] MEDS ORDERED: FLU VACC TS2024-25(6MOS UP)/PF 45 MCG/0.5 ML SYRINGE IM ONE (21:00)
--- NOTE | 2024-01-13 22:00 | NUR ---
ARRIVAL TO ICU: RECEIVED REPORT FROM VANESSA SORIANO AT 2029. PT ARRIVED TO ICU BED 15 VIA GURNEY WITH ALL BELONGINGS AT 2049. PT SLID ACROSS TO ICU BED WITH ASSIST. PT ALERT AND ORIENTED, ANSWERING QUESTIONS AND FOLLOWING COMMANDS. PT ON 3L NC WITH SPO2 HIGH 90'S. LUNGS CLEAR. CARDIAC MONTOR IN PLACE, SR WITH HR 80'S. SBP 200'S. NITRO GTT AT 30 MCG/MIN. PT DENIES CHEST PAIN/PRESSURE OR N/V. 20 G PIV TO RAC AND LAC BOTH PATENT. PUREWICK IN PLACE WITH ATTENDS, DRAINING TO SUCTION. NO BM YET. 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 BED LOW AND LOCKED, CALL LIGHT IN REACH.
[2024-01-13] MEDS ORDERED: Carvedilol 6.25 MG Tab PO SCH (23:05)
[2024-01-13 23:48] LABS: Source, Urine Foley catheter
[2024-01-13 23:53] LABS: Bilirubin, Urine Neg (Neg); Blood, Urine 2+ (Neg); Glucose Qualitative, Urine 2+ (Neg); Ketones, Urine Neg (Neg); Leukocyte Esterase, Urine Neg (Neg); Nitrite, Urine Neg (Neg); Protein, Urine 4+ (Neg); Urobilinogen, Urine NORM (Normal)
[2024-01-13 23:54] LABS: Appearance, Urine Clear (Clear); Color, Urine Yellow (P-Yellow)
[2024-01-14] VITALS (30 sets, daily range): BP systolic 130–197; BP diastolic 64–115
[2024-01-14 00:02] LABS: Amorphous Light (0-Heavy); Bacteria Rare /hpf; Red Blood Cells, Urine 0-2 /hpf (0-2); Squamous Epithelial Cells Rare /hpf (Few); White Blood Cells, Urine Not Seen /hpf (0-5)
[2024-01-14 03:40] LABS: Hematocrit 22.6 % (33.0-51.0); Hemoglobin 7.6 g/dL (11.5-16.0); Mean Corpuscular HGB 29.8 pg (26.0-34.0); Mean Corpuscular HGB Conc 33.6 g/dL (31.5-36.5); Mean Corpuscular Volume 89 fL (80-100); Mean Platelet Volume 11.7 fL (9.1-12.4); Platelet Count 62 K/mm3 (150-400); RDW Coefficient Variation 12.9 % (11.7-14.2); RDW Standard Deviation 41.2 fL (35.1-46.3); Red Blood Cell Count 2.55 M/mm3 (3.80-5.20); White Blood Cell Count 4.64 K/mm3 (4.00-11.30)
[2024-01-14 04:06] LABS: Albumin, Blood 2.5 g/dL (3.4-5.0); Albumin/Globulin Ratio 0.8 (0.8-1.8); Bilirubin, Total 0.3 mg/dL (0.1-1.0); Bun/Creatinine Ratio 33.5 (12.0-20.0); Calcium, Blood 8.4 mg/dL (8.5-10.1); Creatinine, Blood 1.58 mg/dL (0.40-1.00); Globulin, Blood 3.1 g/dL (2.2-4.0); Potassium, Blood 4.7 mmol/L (3.5-5.5); Total Protein, Blood 5.6 g/dL (6.4-8.2)
--- NOTE | 2024-01-14 05:26 | NUR ---
SHIFT SUMMARY: NO ACUTE CHANGES SINCE ARRIVAL TO ICU. NITRO GTT OFF AT 0115. SBP <180. DENIES CHEST PAIN/PRESSURE. CONTINUES TO BE ALERT AND ORIENTED. ON 3L NC WITH SPO2 HIGH 90'S. DENIES SOB. DENIES N/V. PIVS INTACT AND SALINE LOCKED. PT REMAINS IN SR WITH HR 80'S. LEW IN PLACE FOR RETENTION, DRAINING TO GRAVITY. NO BM THIS SHIFT. BED LOW AND LOCKED, CALL LIGHT IN REACH. TOLERATING PO INTAKE.
[2024-01-14] MEDS ORDERED: Insulin Regular 100 UNIT/ML 10ML Vial SC SCH (07:30)
[2024-01-14 08:15] LABS: BASOPHILS ABSOLUTE AUTO 0.02 K/mm3 (0.00-0.23); BASOPHILS PERCENT AUTO 0 % (0-2); EOSINOPHILS ABSOLUTE AUTO 0.05 K/mm3 (0.00-0.68); EOSINOPHILS PERCENT AUTO 1 % (0-6); Hematocrit 23.5 % (33.0-51.0); Hemoglobin 8.1 g/dL (11.5-16.0); IMMATURE GRAN ABSOLUTE AUTO 0.01 K/mm3 (0.00-0.10); IMMATURE GRAN PERCENT AUTO 0 % (0-1); LYMPHOCYTES ABSOLUTE AUTO 0.92 K/mm3 (0.84-5.20); LYMPHOCYTES PERCENT AUTO 20 % (21-46); MONOCYTES ABSOLUTE AUTO 0.44 K/mm3 (0.16-1.47); MONOCYTES PERCENT AUTO 9 % (4-13); Mean Corpuscular HGB 29.9 pg (26.0-34.0); Mean Corpuscular HGB Conc 34.5 g/dL (31.5-36.5); Mean Corpuscular Volume 87 fL (80-100); NEUTROPHILS ABSOLUTE AUTO 3.29 K/mm3 (1.96-9.15); NEUTROPHILS PERCENT AUTO 70 % (41-73); Platelet Count 167 K/mm3 (150-400); RDW Coefficient Variation 12.9 % (11.7-14.2); RDW Standard Deviation 40.9 fL (35.1-46.3); Red Blood Cell Count 2.71 M/mm3 (3.80-5.20); White Blood Cell Count 4.73 K/mm3 (4.00-11.30)
[2024-01-14] MEDS ORDERED: Enoxaparin 30 MG/0.3 ML SYR SC SCH (09:00)
--- NOTE | 2024-01-14 11:33 | NUR ---
ASSUMED CARE PT TRANSFERRED FROM ICU TO 336 VIA SLIDE TRANSFER. PT ALERT AND ORIENTED X4. VS STABLE. O2 SATS >90% ON RA. PT DENIES ANY PAIN, BUT COMPLAINS OF NAUSEA. PT STATES SHE HAS BEEN NAUSEOUS SINCE MEDICATION ADMINISTRATION THIS AM. PT STATES "THE MEDICATION IS MAKING ME WORSE". PT EDUCATED ON IMPORTANCE OF BLOOD PRESSURE MEDICATION AND CONTROLLING BLOOD PRESSURE. ANDROID SOFTWARE ENGINEER STRONG, BUT RIGHT SIDE IS SLIGHTLY WEAKER. PT STATES SHE DOES NOT ALWAYS HAVE CONTROL OF RIGHT HAND. PT STATES SHE USES A WALKER AT BASELINE AND DAUGHTER IS TO BRING IT IN. PT REQUESTING THE DOCTOR TO COME BY TO DISCUSS POLST FORM WHILE DAUGHTER IS PRESENT. DR. SHANE CALLED AND NOTIFIED.
[2024-01-14] MEDS ORDERED: Sod Ferric Gluc Complx/Sucrose 125 MG in NS 100 ML IV SCH (16:30)
[2024-01-14] MEDS ORDERED: Carvedilol 6.25 MG Tab PO SCH (17:00)
--- NOTE | 2024-01-14 18:00 | NUR ---
SHIFT SUMMARY PT REMAINS ALERT AND ORIENTED. BP STABLE. O2 SATS REMAIN ABOVE 90% ON RA. PT DENIES ANY PAIN. PT NOW DENIES NAUSEA. PT REFUSES INSULIN ADMINISTRATION AND STATES SHE ONLY WANTS HER INSULIN FROM HOME. PT ABLE TO REPOSITION HERSELF IN THE BED INDEPENDENTLY.
[2024-01-15 02:22] LABS: Adenovirus Not Detected (NOT DETECT); Bordetella pertussis Not Detected (NOT DETECT); Chlamydophila pneumoniae Not Detected (NOT DETECT); Coronavirus 229E Not Detected (NOT DETECT); Coronavirus HKU1 Not Detected (NOT DETECT); Coronavirus NL63 Not Detected (NOT DETECT); Coronavirus OC43 Not Detected (NOT DETECT); Human Metapneumovirus Not Detected (NOT DETECT); Human Rhinovirus/Enterovirus Not Detected (NOT DETECT); Influenza A/2009-H1 Not Detected (NOT DETECT); Influenza A/H1 Not Detected (NOT DETECT); Influenza A/H3 Not Detected (NOT DETECT); Influenza B Not Detected (NOT DETECT); Mycoplasma pneumoniae Not Detected (NOT DETECT); Parainfluenza Virus 1 Not Detected (NOT DETECT); Parainfluenza Virus 2 Not Detected (NOT DETECT); Parainfluenza Virus 3 Not Detected (NOT DETECT); Parainfluenza Virus 4 Not Detected (NOT DETECT); Respiratory Syncytial Virus Not Detected (NOT DETECT); SARS-Cov-2 (COVID-19), BioFire Not Detected (NOT DETECT)
[2024-01-15 05:50] VITALS: BP 150/101
[2024-01-15 06:02] LABS: BASOPHILS ABSOLUTE AUTO 0.03 K/mm3 (0.00-0.23); BASOPHILS PERCENT AUTO 1 % (0-2); EOSINOPHILS ABSOLUTE AUTO 0.12 K/mm3 (0.00-0.68); EOSINOPHILS PERCENT AUTO 3 % (0-6); Hematocrit 22.2 % (33.0-51.0); Hemoglobin 7.7 g/dL (11.5-16.0); IMMATURE GRAN ABSOLUTE AUTO 0.03 K/mm3 (0.00-0.10); IMMATURE GRAN PERCENT AUTO 1 % (0-1); LYMPHOCYTES ABSOLUTE AUTO 1.05 K/mm3 (0.84-5.20); LYMPHOCYTES PERCENT AUTO 22 % (21-46); MONOCYTES ABSOLUTE AUTO 0.49 K/mm3 (0.16-1.47); MONOCYTES PERCENT AUTO 10 % (4-13); Mean Corpuscular HGB 30.2 pg (26.0-34.0); Mean Corpuscular HGB Conc 34.7 g/dL (31.5-36.5); Mean Corpuscular Volume 87 fL (80-100); Mean Platelet Volume 10.2 fL (9.1-12.4); NEUTROPHILS ABSOLUTE AUTO 3.12 K/mm3 (1.96-9.15); NEUTROPHILS PERCENT AUTO 65 % (41-73); Platelet Count 147 K/mm3 (150-400); RDW Coefficient Variation 12.7 % (11.7-14.2); RDW Standard Deviation 40.4 fL (35.1-46.3); Red Blood Cell Count 2.55 M/mm3 (3.80-5.20); White Blood Cell Count 4.84 K/mm3 (4.00-11.30)
[2024-01-15 06:24] LABS: Albumin, Blood 2.5 g/dL (3.4-5.0); Albumin/Globulin Ratio 0.9 (0.8-1.8); Bilirubin, Total 0.4 mg/dL (0.1-1.0); Bun/Creatinine Ratio 26.6 (12.0-20.0); Calcium, Blood 8.1 mg/dL (8.5-10.1); Creatinine, Blood 1.99 mg/dL (0.40-1.00); Globulin, Blood 2.9 g/dL (2.2-4.0); Potassium, Blood 4.1 mmol/L (3.5-5.5); Total Protein, Blood 5.4 g/dL (6.4-8.2)
--- NOTE | 2024-01-15 06:25 | NUR ---
SHIFT SUMMARY PT A&OX4 AND ANSWERS QUESTIONS APPROPRIATELY. PT IS NONCOMPLIENT W/ INSULIN ADMINISTRATION DUE TO DIFFERENCES FROM HOME INSULIN BRANDS. PT CBG REMAIN STABLE AT THIS TIME. PT BP IS ELEVATED, NO ADVERSE EFFECTS ASSESSED AT THIS TIME. REMAINING VSS. NO COMPLAINTS OF CP/PRESSURE OR SOB. PT SPENT THE SHIFT IN BED WITH EYES CLOSED AND RESPIRATIONS EVEN AND UNLABORED. NO ACUTE EVENTS AT THIS TIME. PT REPOSITIONED INDEPENDENTLY. PT LEFT IN A POSITION OF SAFETY WITH FALL PRECAUTIONS IN PLACE AND CALL LIGHT IN REACH.
[2024-01-15 07:13] VITALS: BP 167/87
[2024-01-15] MEDS ORDERED: AmLODIPine Besylate 5 MG Tab PO SCH (09:00)
[2024-01-15] MEDS ORDERED: INSULIN GLARGINE 100 UNIT/ML SC SCH (11:00)
[2024-01-15] MEDS ORDERED: Insulin Human Lispro 100 Units/ML 3ML Syringe SC SCH ×2 (11:30)
--- NOTE | 2024-01-15 12:49 | NUR ---
AM NOTE: PATIENT ALERT AND ORIENTED. DENIES NUMBNESS/TINGLING. HOME WALKER BROUGHT IN BY DAUGHTER WELL HOME INSULIN. UP WITH 1 PERSON ASSIST AND WALKER. DENIES HEADACHE/VISION CHANGES. ON ROOM AIR SATING ABOVE 95%. DENIES SOB/COUGH. TELE READING SR WITH HR 70'S. SBP 160'S. PATIENT REFUSING FULL COREG DOSE THIS AM, DR. SHANE AWARE. DENIES CHEST PAIN/PRESSURE/PALPITATIONS. PPP. IV IRON INFUSED THIS AM PER EMAR. BOWEL TONES PRESENT, DENIES ABDOMINAL PAIN BUT COMPLAINS OF INTERMIT NAUSEA. MEDICATED PER EMAR AND COOL WASHCLOTH APPLIED TO FOREHEAD. PATIENT ABLE TO EAT BREAKFAST. AC BLOOD SUGARS IN PLACE. HOME INSULIN VERIFIED BY PHARMACY. DR. SHANE IN THIS AM AND THIS RN AT BEDSIDE FOR PROVIDER ROUNDING. THIS RN UPDATED DAUGHTER AND SON IN LAW. CALL LIGHT IN REACH.
[2024-01-15 15:06] VITALS: BP 168/76
[2024-01-15] MEDS ORDERED: Metoclopramide HCl 5MG / ML 2ML Vial IV PRN (17:30)
--- NOTE | 2024-01-15 18:33 | NUR ---
PATIENT CONTINUES TO HAVE INTERMIT NAUSEA THROUGHOUT THE DAY. DR. SHANE CALLED AND REGLAN ORDERS IN PLACE. PATIENT STATES "THE BLOOD PRESSURE MEDICINE" IS MAKING HER NAUSEOUS. NOT WANTING TO TAKE BP MEDS. DR. SHANE UPDATED ON BLOOD PRESSURE AND REFUSAL OF MEDICATIONS. REMAINS ON ROOM AIR. NO CHANGES TO TELE. DAIGHTER AT BEDSIDE. UP TO BSC THIS SHIFT WITH 2 BOWEL MOVEMENTS. POOR APPEATITE. IV SALINE LOCKED. CALL LIGHT IN REACH. DENIES NEEDS AT THIS TIME.
[2024-01-15 20:25] VITALS: BP 197/85
[2024-01-15 21:04] VITALS: BP 170/79
[2024-01-15 21:55] VITALS: BP 173/74
[2024-01-16] VITALS (7 sets, daily range): BP systolic 141–170; BP diastolic 71–80
--- NOTE | 2024-01-16 04:19 | NUR ---
SHIFT SUMMARY PT STATED SHE WANTS TO RECEIVE HER MEDS "ONE AT A TIME" WITH TIME IN BETWEEN EACH MEDICATION. SHE DOESN'T WANT TO "TAKE MORE THAN ONE THING AT ONCE" DUE TO THINKING "THE MEDS ARE MAKING ME SICK, AND I WANT TO KNOW WHICH ONE IS MAKING ME FEEL THIS WAY." EDUCATED PT IMPORTANCE OF TAKING THE MEDICATIONS WHICH HAVE BEEN PRESCRIBED TO HER WHEN PRESCRIBED. PT IS STEADFAST. BLOOD GLUCOSE HAS BEEN ELEVATED AND TREATED WITH HOME MEDS VERIFIED BY PHARMACY. PT ABLE TO TRANSFER TO BEDSIDE COMMODE WITH STANDBY ASSIST. SPOKE WITH DAUGHTER ABOUT NEED FOR MEDICATION ADMINISTRATION TO KEEP BP UNDER CONTROL. PT SLEEPING CURRENTLY. WILL CONTINUE TO MONITOR.
--- NOTE | 2024-01-16 09:54 | NUR ---
"Spiritual Care Consult | Ordered by Dr. Loza Pt. is resting but responds when I enter the room. Pt. is pleasant, and displays evidence of being agreeable to a visitl. Pt. Verbalized concerns about how she is understood, yet verbalized that her perspective on life has improved in the last day. Listen and length with empathy and a calm presence. Pt. verbalized that she does pray. Considered matters of lisa and belief. Prayed with Pt. Pt. verbalized gratitude for the spiritual care visit and welcomed this events administrative assistant to return."
[2024-01-16] MEDS ORDERED: Carvedilol 6.25 MG Tab PO SCH (10:00)
[2024-01-16 11:02] LABS: BASOPHILS ABSOLUTE AUTO 0.02 K/mm3 (0.00-0.23); BASOPHILS PERCENT AUTO 0 % (0-2); EOSINOPHILS ABSOLUTE AUTO 0.07 K/mm3 (0.00-0.68); EOSINOPHILS PERCENT AUTO 1 % (0-6); Hematocrit 21.5 % (33.0-51.0); Hemoglobin 7.2 g/dL (11.5-16.0); IMMATURE GRAN ABSOLUTE AUTO 0.02 K/mm3 (0.00-0.10); IMMATURE GRAN PERCENT AUTO 0 % (0-1); LYMPHOCYTES ABSOLUTE AUTO 0.66 K/mm3 (0.84-5.20); LYMPHOCYTES PERCENT AUTO 10 % (21-46); MONOCYTES ABSOLUTE AUTO 0.56 K/mm3 (0.16-1.47); MONOCYTES PERCENT AUTO 9 % (4-13); Mean Corpuscular HGB 29.1 pg (26.0-34.0); Mean Corpuscular HGB Conc 33.5 g/dL (31.5-36.5); Mean Corpuscular Volume 87 fL (80-100); Mean Platelet Volume 10.1 fL (9.1-12.4); NEUTROPHILS ABSOLUTE AUTO 5.22 K/mm3 (1.96-9.15); NEUTROPHILS PERCENT AUTO 80 % (41-73); Platelet Count 149 K/mm3 (150-400); RDW Standard Deviation 41.1 fL (35.1-46.3); Red Blood Cell Count 2.47 M/mm3 (3.80-5.20); White Blood Cell Count 6.55 K/mm3 (4.00-11.30)
[2024-01-16 11:19] LABS: Bun/Creatinine Ratio 23.8 (12.0-20.0); Calcium, Blood 8.3 mg/dL (8.5-10.1); Creatinine, Blood 2.06 mg/dL (0.40-1.00)
[2024-01-16] MEDS ORDERED: Ergocalciferol 50000 Intn'l Units PO ONE (13:00)
--- NOTE | 2024-01-16 13:56 | NUR ---
OXYGEN PLACED NOC SHIFT FOR REPORTED DESAT TO 82% WHILE ASLEEP, CONT PULSE OX 99% 2L, TOOK OXYGEN OFF AT 1015. SATS STAYED MID 90'S WHILE PT AWAKE. WHEN SHE NAPPED SATS DIPPED INTO 85%, RELPACED OXYGEN AT 2L WHILE RESTING.
[2024-01-16] MEDS ORDERED: NS 500 ML IV SCH (14:50)
--- NOTE | 2024-01-16 18:44 | NUR ---
PT A&Ox4, VSS, SR 78 on tele, was on RA but desated into the 80s while napping 2l O2 NC placed satting 98. Pt was scheduled for DC today with home health, but blood work came back with hgb of 7.2, hct 21.5, pt weak with intermittant nausea, DC held pending transfusion of PRBC, transfused with no ill effects. Pt remains fatigued and weak with little appatite, and very little urine output. 3 small BMs on BSC and toilet. Pt pleasant and compliant with all care.
[2024-01-16] MEDS ORDERED: Epoetin Alfa-EPBX 10,000 Unit/ML 1ML Vial IV ONE (22:00)
[2024-01-16] MEDS ORDERED: Sod Ferric Gluc Complx/Sucrose 125 MG in NS 100 ML IV SCH (22:00)
[2024-01-16] MEDS ORDERED: DEXTROMETHORPHAN/BENZOCAINE 1 EACH LOZENGE MT PRN (23:05)
[2024-01-17 03:59] VITALS: BP 170/72
[2024-01-17] MEDS ORDERED: Dextrose 50% 50 ML Syringe IV ONE (04:05)
--- NOTE | 2024-01-17 04:35 | NUR ---
PT FOUND LETHARGIC AND HARD TO AROUSE. PT PALE AND DIAPHORETIC IN APPEARANCE. VSS. ON TELE SINUS VALERIA @ 57 BPM. BLOOD GLUCOSE CHECKED TWICE 54 AND 48. PT GIVEN CUP OF ORANGE JUICE WHILE HOSPITALIST NOTIFIED AND ORDER GIVEN FOR 25 ML D50 TO BE GIVEN. RAPID RESPONSE CALLED AFTER PT BECAME MORE LETHARGIC. 25 ML D50 GIVEN AND PT BECAME MORE AROUSABLE WITH SLIGHT STERNAL RUB. PT WAS ON O2 1L/NC. VSS UPON RECHECK AND BLOOD GLUCOSE 174 AND PT CAN TELL WHERE THEY ARE, , AND WHY THEY WERE NOT FEELING WELL. HOSPITALIST NOTIFIED THAT PT BACK TO BASELINE AND ORDER GIVEN TO DISCONTINUE BID LONG ACTING INSULIN AT THIS TIME.
--- NOTE | 2024-01-17 05:17 | NUR ---
SHIFT SUMMARY NOC PT A/O X 4. PLEASANT, BUT IRRITABLE AT TIMES. NON COMPLIANT WITH BEDTIME DOSE OF NORVASC BP 158/74, PT EDUCATED ON NEED TO TAKE BP RX, BUT STILL REFUSED. HS CBG 149 AND SCHEDULED 12 UNITS LONG ACTING INSULIN GIVEN. DR LEPE FROM NEPHROLOGY CAME TO SEE PATIENT WHO STATED THAT THEY ARE UNABLE TO DISCHARGE HOME CURRENTLY DUE TO INCRESED WEAKNESS AND FATIGUE. MD PUT IN ORDERS FOR FERRLECIT AND RETACRIT AND WERE ADMINISTERED. PT RECEIVED 1 UNIT PRBC YESTERDAY FOR HGB 7.2, AWAITING AM LABS FOR IMPROVEMENT. PT HAD SLEEP STUDY PERFORMED DURING NIGHT WITH NO ACUTE EVENTS, WHILE ON RA SPO2 >90% FOR DURATION OF STUDY. ON TELE SINUS RHYTHM 70'S. PT HAD C/O OF NAUSEA AND MEDICATED PER EMAR. DURING ROUNDING PT FOUND LETHARGIC WITH CHANGE IN LOC, VSS. BLOOD GLUCOSE 54 AND 48, LAUNDRY OPERATOR CALLED AND ORANGE JUICE AND 25ML D50 GIVEN AND BLOOD GLUCOSE 174 THEN 124 HALF AN HOUR LATER. PT NOW BACK TO BASELINE LOC. PT CURRENTLY RESTING WITH BED IN LOWEST POSITION, AND CALL LIGHT WITHIN REACH.
[2024-01-17 05:35] LABS: BASOPHILS ABSOLUTE AUTO 0.02 K/mm3 (0.00-0.23); BASOPHILS PERCENT AUTO 0 % (0-2); EOSINOPHILS ABSOLUTE AUTO 0.03 K/mm3 (0.00-0.68); EOSINOPHILS PERCENT AUTO 0 % (0-6); Hematocrit 29.2 % (33.0-51.0); Hemoglobin 10.2 g/dL (11.5-16.0); IMMATURE GRAN ABSOLUTE AUTO 0.05 K/mm3 (0.00-0.10); IMMATURE GRAN PERCENT AUTO 1 % (0-1); LYMPHOCYTES ABSOLUTE AUTO 0.54 K/mm3 (0.84-5.20); LYMPHOCYTES PERCENT AUTO 6 % (21-46); MONOCYTES ABSOLUTE AUTO 0.49 K/mm3 (0.16-1.47); MONOCYTES PERCENT AUTO 5 % (4-13); Mean Corpuscular HGB 30.2 pg (26.0-34.0); Mean Corpuscular HGB Conc 34.9 g/dL (31.5-36.5); Mean Corpuscular Volume 86 fL (80-100); Mean Platelet Volume 10.3 fL (9.1-12.4); NEUTROPHILS ABSOLUTE AUTO 7.94 K/mm3 (1.96-9.15); NEUTROPHILS PERCENT AUTO 88 % (41-73); Platelet Count 168 K/mm3 (150-400); RDW Coefficient Variation 13.2 % (11.7-14.2); RDW Standard Deviation 40.9 fL (35.1-46.3); Red Blood Cell Count 3.38 M/mm3 (3.80-5.20); White Blood Cell Count 9.07 K/mm3 (4.00-11.30)
[2024-01-17 06:37] LABS: Albumin, Blood 2.8 g/dL (3.4-5.0); Albumin/Globulin Ratio 0.9 (0.8-1.8); Bilirubin, Total 0.8 mg/dL (0.1-1.0); Bun/Creatinine Ratio 26.1 (12.0-20.0); Calcium, Blood 8.3 mg/dL (8.5-10.1); Creatinine, Blood 2.07 mg/dL (0.40-1.00); Globulin, Blood 3.1 g/dL (2.2-4.0); Thyroid Stimulating Hormone 3.49 uIU/mL (0.360-4.800); Total Protein, Blood 5.9 g/dL (6.4-8.2); Uric Acid, Blood 4.9 mg/dL (2.6-6.0)
[2024-01-17 07:38] VITALS: BP 133/82
[2024-01-17 12:17] VITALS: BP 169/77
[2024-01-17] MEDS ORDERED: Epoetin Alfa-EPBX 10,000 Unit/ML 1ML Vial IV ONE (13:35)
[2024-01-17] MEDS ORDERED: Metoclopramide HCl 10 MG Tab PO SCH (16:30)
[2024-01-17 17:52] VITALS: BP 134/60
--- NOTE | 2024-01-17 18:14 | NUR ---
SHIFT SUMMARY: PT A/O X4. VERY NAUSEATED THIS AM. ZOFRAN AND REGLAN PROVIDED PER EMAR. PT FURTHER C/O NAUSEA. REGLAN CHANGED FROM IV PRN TO PO SCHEDULED. PT REFUSED TO WORK WITH PT/OT D/T NAUSEA. RANDOM URINE COLLECTED VIA FEMALE URINAL. HYPERTENSION NOTED. PT REFUSING TO TAKE PO MEDICATION DESPITE EDUCATION. DR. SHANE AWARE OF REFUSAL. PT CONTINUES TO HAVE SMALL LOOSE INCONTINENT BM'S. BS STABLE THIS SHIFT. WILL SPEAK WITH HEAD GREASE MAKER RN REGARDING PT UNWILLINGNESS TO CONSUME FOOD/DRINK. PLAN TO REEVALUATE PT WITH PT/OT TOMORROW AND DETERMINE IF HH OR SNF IS BEST OPTION. HOME 02 EVAL WILL BE NEEDED IF GOING HOME WITH HH. CALL LIGHT IN REACH. BED IN LOWEST POSITION.
[2024-01-17 19:54] VITALS: BP 153/67
[2024-01-17] MEDS ORDERED: D5W-NS 1,000 ML IV SCH (20:00)
[2024-01-18 02:47] VITALS: BP 155/72
[2024-01-18 06:43] LABS: BASOPHILS ABSOLUTE AUTO 0.02 K/mm3 (0.00-0.23); BASOPHILS PERCENT AUTO 0 % (0-2); EOSINOPHILS ABSOLUTE AUTO 0.02 K/mm3 (0.00-0.68); EOSINOPHILS PERCENT AUTO 0 % (0-6); Hematocrit 26.1 % (33.0-51.0); Hemoglobin 9.2 g/dL (11.5-16.0); IMMATURE GRAN ABSOLUTE AUTO 0.05 K/mm3 (0.00-0.10); IMMATURE GRAN PERCENT AUTO 0 % (0-1); LYMPHOCYTES PERCENT AUTO 5 % (21-46); MONOCYTES ABSOLUTE AUTO 0.59 K/mm3 (0.16-1.47); MONOCYTES PERCENT AUTO 5 % (4-13); Mean Corpuscular HGB 30.4 pg (26.0-34.0); Mean Corpuscular HGB Conc 35.2 g/dL (31.5-36.5); Mean Corpuscular Volume 86 fL (80-100); Mean Platelet Volume 10.4 fL (9.1-12.4); NEUTROPHILS ABSOLUTE AUTO 10.21 K/mm3 (1.96-9.15); NEUTROPHILS PERCENT AUTO 89 % (41-73); Platelet Count 150 K/mm3 (150-400); RDW Coefficient Variation 13.2 % (11.7-14.2); RDW Standard Deviation 40.5 fL (35.1-46.3); Red Blood Cell Count 3.03 M/mm3 (3.80-5.20); White Blood Cell Count 11.49 K/mm3 (4.00-11.30)
[2024-01-18 06:54] LABS: Bun/Creatinine Ratio 24.7 (12.0-20.0); Calcium, Blood 7.8 mg/dL (8.5-10.1); Creatinine, Blood 1.94 mg/dL (0.40-1.00)
[2024-01-18 07:21] VITALS: BP 172/77
--- NOTE | 2024-01-18 07:36 | NUR ---
SHIFT SUMMARY NOC PT A/O X 4. PLESANT AND COOPERATIVE WITH CARE. VSS. DR LEPE STOPPED BY DURING CHANGE OF SHIFT REPORT AND DISCUSSED PT STATUS REGARDING HYPOGLYCEMIA EARLIER IN MORNING. INFUSION OF D5W STARTED DUE TO PT POOR PO INTAKE, HS CBG 85 AND PT GIVEN ORANGE JUICE SUPPLEMENT. PT ON TELE SINUS RHYTHM IN 80'S. STILL HAVING INCONTINENT BM AND MUCOUS IN URINE. PT CURRENTLY RESTING WITH BED IN LOWEST POSITION, AND CALL LIGHT WITHIN REACH.
[2024-01-18] MEDS ORDERED: AmLODIPine Besylate 5 MG Tab PO SCH ×2 (09:00→21:00)
[2024-01-18 10:44] VITALS: BP 145/66
[2024-01-18 14:24] VITALS: BP 147/65
--- NOTE | 2024-01-18 16:35 | NUR ---
SHIFT SUMMARY: PT A/O X4. PT HAD MULTIPLE COMPLAINTS THIS SHIFT INCLUDING N/V, BURNING UPON VOIDING, LETHARGY, AND WEAKNESS. DR. SHANE AND DR. Hays AWARE. PT REFUSING TO WORK WITH PHYSICAL THERAPY THIS MORNING AND BECAME NAUSEOUS WHEN ASKED TO WORK WITH OCCUPATIONAL THERAPY. PT EDUCATED BY OT AND STAFF THE NEED TO GET OOB FREQUENTLY IN ORDER TO HEAL. PT STATES STAFF IS "TORTURING" HER WHEN PERFORMING "TOO MANY TASKS IN ONE DAY." STAFF ASSISTED PT OOB FOR LUNCH. APPROX TEN MINUTES AFTER OOB, PT BEGAN TO YELL TO STAFF IN [place] TO GET BACK TO BED AND ATTEMPTED BACK TO BED BY SELF. STAFF SPOKE WITH PT AGAIN AND STATED SHE COULD GO BACK TO BED AFTER LUNCH. PT ATE ABOUT 15% OF LUNCH THEN YELLED AGAIN TO GET BACK TO BED. SECONG BAG OF D5NS HELD D/T INCREASED BLOOD SUGAR. DR. Hays AWARE AND GAVE VERBAL ORDER TO CHANGE TO NS @100/HR. PT CURRENTLY RESTING COMFORTABLY. CALL LIGHT IN REACH. BED IN LOWEST POSITION.
[2024-01-18] MEDS ORDERED: NS 1,000 ML IV SCH ×2 (16:45→22:50)
[2024-01-18 19:46] VITALS: BP 150/86
--- NOTE | 2024-01-19 01:49 | NUR ---
PT CONVERTED TO A-FIB AROUND 1899. PT ASYMPTOMATIC AND STATED SHE HAS A HX OF A-FIB. DR JARRELL NOTIFIED, ORDERS GIVEN TO CONTINUE TO MONITOR AT THIS TIME BUT DR JARRELL VERBALIZED THAT HE WOULD LOOK OVER PT'S CHART FOR POSSIBLE NEED FOR RATE CONTROL MEDICATIONS.
[2024-01-19 04:18] VITALS: BP 150/79
[2024-01-19 06:34] LABS: Albumin, Blood 2.4 g/dL (3.4-5.0); Anion Gap 12 mmol/L (3-11); Blood Urea Nitrogen 48 mg/dL (8-24); Bun/Creatinine Ratio 23.1 (12.0-20.0); CO2, Blood 22 mmol/L (21-32); Calcium, Blood 8.4 mg/dL (8.5-10.1); Chloride, Blood 95 mmol/L (98-108); Creatinine, Blood 2.08 mg/dL (0.40-1.00); Glomerular Filtration Rate 24 (60-); Glucose, Blood 167 mg/dL (70-99); Phosphorus, Blood 3.3 mg/dL (2.5-4.9); Potassium, Blood 3.8 mmol/L (3.5-5.5); Sodium, Blood 125 mmol/L (136-145)
[2024-01-19 07:44] VITALS: BP 152/78
--- NOTE | 2024-01-19 07:51 | NUR ---
SHIFT SUMMARY PT A&Ox3. NO C/O PAIN. NS INFUSING AT 100ML/HR. PT UP TO BSC DURING THE NIGHT AND C/O HAVING LOOSE STOOL FOR SEVERAL DAYS. PT SOMNOLENT AND SLEPT MOST OF THE NIGHT. PT CONVERTED TO A-FIB AT AROUND 1900 AND WAS ASYMPTOMATIC. DR JARRELL NOTIFIED, SEE EARLIER NOTE. PT CONVERTED BACK TO NSR AT AT 0420. ON 2L OF OXYGEN. BED ALARM ON. BED IN LOWEST POSITION AND CALL LIGHT IN REACH.
[2024-01-19] MEDS ORDERED: UREA 15 GM POWD.PACK PO SCH (09:00)
[2024-01-19 17:07] VITALS: BP 155/66
--- NOTE | 2024-01-19 18:06 | NUR ---
SHIFT SUMMARY PT RESTING QUIETLY AT START OF SHIFT. UP TO BSC THRU OUT THE DAY WITH SM AMT LOOSE STOOLS IN PULL UPS. PT UNABLE TO HAVE BM IN BSC. SM AMT URINE OUTPUT; VERY THICK MILKY COLORED URINE. DR SHANE IN TO SEE PT THIS AM AND TALKED WITH PT AND FAMILY. PALLIATIVE CARE CONSULT PLACED. DR Hays IN TO SEE PT; NEW ORDERS PLACED. IVF'S STOPPED. PT WILLING TO PARTICIPATE WITH THERAPY A SM AMT TODAY. PT MOSTLY DECLINED MEDS AND TREATMENT. DECLINED TO EAT LUNCH, BUT IS SITTING UP TO EOB CURRENTLY EATING ON SOME DINNER. NO C/O. CALL LT IN REACH. BED ALARM ON FOR SAFETY.
[2024-01-19 19:29] VITALS: BP 148/68
[2024-01-20 03:14] VITALS: BP 136/71
--- NOTE | 2024-01-20 05:13 | NUR ---
SHIFT SUMMARY PATIENT SLEPT IN LONG INTERVALS, UP TO BSC TWICE. INCONT OF LIQUID STOOL. O2/2L/NC. GIVEN PRN COUGH TABLETS
[2024-01-20 06:32] LABS: ALBUMIN 2.98 g/dL (3.75-5.01); ALPHA 1 GLOBULIN 0.35 g/dL (0.19-0.46); ALPHA 2 GLOBULIN 0.59 g/dL (0.48-1.05); BETA GLOBULIN 0.87 g/dL (0.48-1.10); TOTAL PROTEIN,SERUM 5.6 g/dL (6.3-8.2)
[2024-01-20 07:23] VITALS: BP 172/79
[2024-01-20 08:21] LABS: Albumin, Blood 2.5 g/dL (3.4-5.0); Anion Gap 13 mmol/L (3-11); Blood Urea Nitrogen 63 mg/dL (8-24); Bun/Creatinine Ratio 30.3 (12.0-20.0); CO2, Blood 20 mmol/L (21-32); Calcium, Blood 8.2 mg/dL (8.5-10.1); Chloride, Blood 96 mmol/L (98-108); Creatinine, Blood 2.08 mg/dL (0.40-1.00); Glomerular Filtration Rate 24 (60-); Glucose, Blood 163 mg/dL (70-99); Phosphorus, Blood 3.1 mg/dL (2.5-4.9); Potassium, Blood 3.6 mmol/L (3.5-5.5); Sodium, Blood 125 mmol/L (136-145)
--- NOTE | 2024-01-20 15:15 | NUR ---
Met with family and physician yesterday to review prognosis and possble plans of care. Hospice was reviewed. Pt placed on comfort care today and plan is home with hospice. Updated team and will continue to monitor patient and support family.
[2024-01-20 16:49] VITALS: BP 115/55
--- NOTE | 2024-01-20 18:02 | NUR ---
SHIFT SUMMARY PT SLEEPING AT START OF SHIFT AND SLEPT MOST OF THE DAY. DOES WAKE FOR CARE AND MEALS, BUT HAS NOT EATEN MORE THAN A COUPLE OF BITES EACH MEAL. HAS DENIED NAUSEA BOTH YESTERDAY AND TODAY. UP TO BSC NEEDED FOR INCONTINENT BOWELS. NO C/O PAIN. DR SHANE CALLED TO REQUEST HOSPICE REFERRAL BE FAXED TO [facility]. PALLIATIVE CARE RN NOTIFIED AND COMPLETED DOCTORS ORDERS. DR SHANE HOPING TO D/C TO HOME WITH HOSPICE IN AM, PER PT'S DUAGHTERS REQUEST. PT AWAKE IN BED AT THIS TIME. DENIES FURTHER NEEDS. CALL LT IN REACH.
[2024-01-20 19:45] VITALS: BP 124/78
[2024-01-21 03:16] VITALS: BP 146/68
--- NOTE | 2024-01-21 05:39 | NUR ---
Patient alert and oriented x2-3, VSS, continuing to be noncompliant with medications overnight. Patient tolerating room air, but coughing frequently, PRN cough drops given x2, see eMAR for detail.
[2024-01-21 07:26] VITALS: BP 115/35
[2024-01-21 07:30] LABS: Albumin, Blood 2.3 g/dL (3.4-5.0); Anion Gap 12 mmol/L (3-11); Blood Urea Nitrogen 78 mg/dL (8-24); Bun/Creatinine Ratio 34.2 (12.0-20.0); CO2, Blood 21 mmol/L (21-32); Chloride, Blood 96 mmol/L (98-108); Creatinine, Blood 2.28 mg/dL (0.40-1.00); Glomerular Filtration Rate 21 (60-); Glucose, Blood 177 mg/dL (70-99); Phosphorus, Blood 3.4 mg/dL (2.5-4.9); Potassium, Blood 3.7 mmol/L (3.5-5.5); Sodium, Blood 125 mmol/L (136-145)
[2024-01-21] MEDS ORDERED: Amlodipine Bes2.5 MG PO (12:29)
[2024-01-21] MEDS ORDERED: CARV6.25 PO (12:29)
[2024-01-21] MEDS ORDERED: CEPACOL THROAT1 EAC1 MT (12:30)
[2024-01-21] MEDS ORDERED: ONDA4ODT MM (12:30)
[2024-01-21] MEDS ORDERED: METO5A PO (12:31)
[2024-01-21 17:20] LABS: ALBUMIN 2.74 g/dL (3.75-5.01); ALPHA 1 GLOBULIN 0.34 g/dL (0.19-0.46); ALPHA 2 GLOBULIN 0.57 g/dL (0.48-1.05); GAMMA 0.76 g/dL (0.62-1.51); IMMUNOFIXATION REFLEX Not Done; TOTAL PROTEIN,SERUM 5.2 g/dL (6.3-8.2)
--- NOTE | 2024-01-21 19:34 | NUR ---
DISCHARGE SUMMARY: A&Ox3-4. COOPERATIVE WITH CARE, BUT NONCOMPLIANT WITH MEDICATIONS AND MOST NURSING INTERVENTIONS; REFUSED ALL MEDICATIONS THIS SHIFT. NO NEW EVENTS. DISCHARGED TO HOME WITH HOSPICE. INSTRUCTED TO FOLLOW-UP WITH PROVIDERS ORDERED. LEFT FLOOR AT WITH ALL BELONGINGS AND DISCHARGE PACKET, ESCORTED BY [facility].
== END 2024-01-21 12:46 | disposition hospice, home (50) | DRG 189 ==
LOC: ER 15:44 → ICUE 15:45 → MEDS 01-14 11:11 → ENPENDDIS 01-16 12:49 → MEDS 01-16 23:02
PROVIDERS: Emergency Medicine; Hospitalist; Internal Medicine; Nurse Practitioner Acute Care; ADMIT Internal Medicine
DX: J81.0 Acute pulmonary edema (principal); J96.01 Acute respiratory failure with hypoxia; I16.1 Hypertensive emergency; N17.9 Acute kidney failure, unspecified; E87.1 Hypo-osmolality and hyponatremia; N18.32 Chronic kidney disease, stage 3b; I11.0 Hypertensive heart disease with heart failure; E11.22 Type 2 diabetes mellitus with diabetic chronic kidney disease; D63.1 Anemia in chronic kidney disease; F32.A Depression, unspecified; D69.6 Thrombocytopenia, unspecified; E11.649 Type 2 diabetes mellitus with hypoglycemia without coma; R62.7 Adult failure to thrive; R30.0 Dysuria; E11.43 Type 2 diabetes mellitus with diabetic autonomic (poly)neuropathy; K31.84 Gastroparesis; M81.0 Age-related osteoporosis without current pathological fracture; Z68.26 Body mass index [BMI] 26.0-26.9, adult; Z86.73 Personal history of transient ischemic attack (TIA), and cerebral infarction without residual deficits; Z91.148 Patient's other noncompliance with medication regimen for other reason; Z88.0 Allergy status to penicillin; Z88.8 Allergy status to other drugs, medicaments and biological substances; Z91.012 Allergy to eggs; Z87.891 Personal history of nicotine dependence; Z79.4 Long term (current) use of insulin
CPT/HCPCS: 0202U; 36415; 36430; 51702; 51703; 70450; 71046; 76770; 80048; 80053; 80069; 81001; 82533; 82550; 82570; 82728; 82784; 82947; 83521; 83540; 83550; 83690; 83880; 83935; 84145; 84155; 84156; 84165; 84300; 84443; 84484; 84550; 85025; 85027; 86334; 86850; 86900; 86901; 86923; 93005; 93010; 93306; 94660; 94760; 94762; 96365; 96366; 96375; 96376; 97110; 97162; 97165; 97530; 97535; 99285-25; A9270; G0378; J1815; J1940; J2405; J2765; J2916; J7030; J7040; J7042; P9016; Q5106